=== PATIENT | female | born 1950 | race Caucasian/White ===

== ENCOUNTER 2020-01-17 06:07 | Outpatient (CLI) | payer MEDICARE, OTHER ==
[2020-01-17 16:36] LABS: SARS-CoV-2 MS2 Positive; SARS-CoV-2 N Gene Negative; SARS-CoV-2 S Gene Negative; SARS-CoV-2 by NAA Not Detected (NotDetected); SARS-CoV-2 orf1ab Negative
== END 2020-01-17 06:08 | disposition home or self-care (01) ==
LOC: LABBT 06:07
PROVIDERS: ATTEND Ophthalmology Retina Specialist
DX: H35.371 Puckering of macula, right eye (principal); Z20.828 Contact with and (suspected) exposure to other viral communicable diseases
CPT/HCPCS: 87635; U0003

== ENCOUNTER 2020-01-20 06:14 | Day surgery (SDC) | payer MEDICARE ==
[2020-01-19 13:44] VITALS: BMI 21.6
[2020-01-20] MEDS ORDERED: Fluorouracil 100 MG, Enoxaparin Sodium 25 MG, EPINEPHrine 0.3 MG in Ophthalmic Irrigati... IRR SCH (06:30)
[2020-01-20] MEDS ORDERED: Phenylephrine 2.5% Ophth Soln 5 ML BOT ONE (06:32)
[2020-01-20] MEDS ORDERED: Cyclopentolate 1% Opth Drop 2 ML BOT ONE (06:32)
[2020-01-20] MEDS ORDERED: Fentanyl 100 MCG/2 ML VIAL ONE (06:34)
[2020-01-20] MEDS ORDERED: Midazolam HCl 5 mg/5 ml Vial ONE (06:35)
[2020-01-20] MEDS ORDERED: Midazolam HCl 2 mg/2 ml Vial ONE (06:35)
[2020-01-20] MEDS ORDERED: PROPOFOL 20 ML ONE (06:35)
[2020-01-20] MEDS ORDERED: Maxitrol 0.1% Opth Oint 3.5 GM TUBE ONE (11:37)
[2020-01-20] MEDS ORDERED: Indocyanine Green 25 MG/10 ML VIAL ONE (11:37)
[2020-01-20] MEDS ORDERED: Enoxaparin Sodium 30 MG/0.3 ML SYRINGE ONE (11:37)
[2020-01-20] MEDS ORDERED: Bupivacaine PF 0.75% SDV 10 ML ONE (11:37)
[2020-01-20] MEDS ORDERED: Lidocaine 4% PF 5 ML AMP ONE (11:37)
[2020-01-20] MEDS ORDERED: Lidocaine 1% PF 5 ML VIAL ONE (11:37)
[2020-01-20] MEDS ORDERED: CEFAZOLIN 1 GM VIAL ONE (11:37)
[2020-01-20] MEDS ORDERED: Triamcinolone 40 MG/ML VIAL ONE (11:37)
[2020-01-20] MEDS ORDERED: PROPOFOL 200 MG/20 ML VIAL ONE (11:37)
--- NOTE | 2020-01-20 14:11 | OP ---
DATE OF PROCEDURE: 01/20/2020 PREOPERATIVE DIAGNOSIS: Epiretinal membrane, right eye. POSTOPERATIVE DIAGNOSIS: Epiretinal membrane, right eye. PROCEDURES PERFORMED: Pars plana vitrectomy, epiretinal membrane peel, right eye. ANESTHESIA: Local with monitored anesthesia care. PROCEDURE IN DETAIL: The patient identified in the preoperative holding area. Appropriate informed consent for the planned surgical procedure on the right eye had been obtained. The patient was transported to the operative suite. Appropriate cardiopulmonary monitoring was established. Local anesthesia was obtained using retrobulbar modified [place] Lint lid block using 50:50 mixture of 4% lidocaine and 0.75% bupivacaine. The patient was prepped and draped in the usual sterile manner for ophthalmic surgery on the right eye. Lid speculum was placed in the right eye. 25-gauge trocar was placed in conjunctiva and sclera superotemporally, inferotemporally, and supranasally. Infusion line was placed inferotemporally. Light pipe vitreous cutter was inserted into the eye. Core vitrectomy was performed. Indocyanine green dye was infused on the posterior pole x4. This identified the epiretinal membrane, it was very flat, and present over the entire posterior pole. It was elevated using membrane scraper in the extramacular areas and peeled across the entire macula. Indirect ophthalmoscopy was used to examine the retina 360 degrees. No holes, breaks, or tears were identified. Trocars were removed and the eye was noted to retain pressure well. Retrobulbar Kenalog and subconjunctival Ancef were placed and antibiotic ointment was placed. The eye was patched and shielded. The patient was taken to the postop recovery unit in good condition, having suffered no immediate perioperative complications. The patient was instructed to keep patch and shield on, avoid lifting or bending. Followup appointment with Dr. Camp. Job ID: [id number]
== END 2020-01-20 09:10 | disposition home or self-care (01) ==
LOC: SDC 06:14
PROVIDERS: ATTEND Ophthalmology Retina Specialist
PROC: 08T43ZZ Resection of Right Vitreous, Percutaneous Approach (ICD-10-PCS; principal; 2020-01-20)
PROC: 08NE3ZZ Release Right Retina, Percutaneous Approach (ICD-10-PCS; 2020-01-20)
DX: H35.371 Puckering of macula, right eye (principal); I10 Essential (primary) hypertension; M06.9 Rheumatoid arthritis, unspecified; Z86.73 Personal history of transient ischemic attack (TIA), and cerebral infarction without residual deficits; Z79.02 Long term (current) use of antithrombotics/antiplatelets; Z79.899 Other long term (current) drug therapy
CPT/HCPCS: J0171; J0690; J1650; J2001; J2250; J2704; J3010; J3301; J3490; J9190

== ENCOUNTER 2024-11-24 11:33 | Outpatient (CLI) | payer MEDICARE ==
[2024-11-24 13:28] LABS: #Basophils 0.07 10x3/uL (0.0-0.2); #Eosinophils 0.69 10x3/uL (0.0-0.7); #Monocytes 1.07 10x3/uL (0.11-0.59); #Neutrophils 5.12 10x3/uL (1.40-6.50); %Basophils 0.7 % (0.0-1.0); %Eosinophils 7.4 % (0.0-10.0); %Lymphocytes 25.7 % (21.0-51.0); %Monocytes 11.4 % (0.0-10.0); %Neutrophils 54.6 % (42.0-75.0); Hematocrit 38.1 % (36.0-47.0); Hemoglobin 11.7 g/dL (12.0-16.0); Mean Corpuscular Hemoglobin 27.5 pg (27.0-31.0); Mean Corpuscular Volume 89.6 fL (78.0-98.0); Platelet Count 360 10x3/uL (130-400); Red Blood Cell (RBC) Count 4.25 mill/uL (4.20-5.40); White Blood Cell (WBC) Count 9.38 10x3/uL (4.8-10.8)
[2024-11-24 13:36] LABS: Bacteria/HPF 3+ HPF (None Seen); Glucose, Urine (Dipstick) Normal (Negative); Leukocyte 250 Leu/uL (Negative); Protein, Urine (Dipstick) Negative (Neg-Trace); RBC/HPF 0-3 HPF (0-3); Specific Gravity, Urine 1.009 (1.002-1.036); WBC/HPF 21-50 HPF (0-3)
[2024-11-24 13:45] LABS: Anion Gap 13 mmol/L (10-20); BUN (Urea Nitrogen) 15 mg/dL (9.8-20.1); Calc. Creatinine Clearance 0 mL/min (70-130); Calcium 8.9 mg/dL (7.8-10.44); Carbon Dioxide 24 mmol/L (23-31); Chloride 105 mmol/L (98-107); Glucose 84 mg/dL (83-110); Potassium 3.8 mmol/L (3.5-5.1); Sodium 138 mmol/L (136-145)
[2024-11-24 13:47] LABS: INR-International Normal Ratio 1.0; Prothrombin Time 13.7 sec (12.0-14.7)
== END 2024-11-24 11:34 | disposition home or self-care (01) ==
LOC: LABBT 11:33
PROVIDERS: ATTEND Orthopaedic Surgery
DX: Z01.818 Encounter for other preprocedural examination (principal); M17.12 Unilateral primary osteoarthritis, left knee
CPT/HCPCS: 71046; 80048; 81001; 85025; 85610; 87081; 93005; 93010

== ENCOUNTER 2024-11-24 12:17 | Outpatient (CLI) | payer MEDICARE | END 2024-11-24 12:18 | disposition home or self-care (01) | LOC: CT 12:17 | PROVIDERS: ATTEND Orthopaedic Surgery | DX: Z01.818 Encounter for other preprocedural examination (principal); M17.12 Unilateral primary osteoarthritis, left knee | CPT/HCPCS: 71046; 80048; 81001; 85025; 85610; 87081; 93005; 93010 ==

== ENCOUNTER 2024-12-01 08:00 | Observation (INO) | payer MEDICARE ==
[2024-12-01] MEDS ORDERED: Ropivacaine 0.5% HCl/PF (150 MG/30 ML VIAL) ONE (08:31)
[2024-12-01] MEDS ORDERED: CEFAZOLIN 2 GM VIAL ONE (08:42)
[2024-12-01] MEDS ORDERED: Tranexamic Acid 1,000 MG/10 ML VIAL ONE ×2 (08:42→12:02)
[2024-12-01] MEDS ORDERED: Vancomycin 1 GM/200 ML (PREMIX FOIL) BAG ONE (09:17)
[2024-12-01] MEDS ORDERED: HYDROcodone/Acetaminophen 10/325 mg Tablet PO PRN (09:30)
[2024-12-01] MEDS ORDERED: Ondansetron PF 4 MG/2 ML Vial IVP PRN ×2 (09:30→11:28)
[2024-12-01] MEDS ORDERED: Ropivacaine 0.2% 550 ML 550 ML NERVE BLCK SCH (09:30)
[2024-12-01] MEDS ORDERED: PROPOFOL 20 ML ONE (09:40)
[2024-12-01] MEDS ORDERED: Ondansetron PF 4 MG/2 ML Vial ONE (09:41)
[2024-12-01] MEDS ORDERED: Lidocaine 1% PF 5 ML VIAL ONE (09:41)
[2024-12-01] MEDS ORDERED: Glycopyrrolate 0.2 MG/ML 5 ML SYRINGE ONE (11:04)
[2024-12-01] MEDS ORDERED: Acetaminophen 325 MG TAB PO PRN (11:28)
[2024-12-01] MEDS ORDERED: diphenhydrAMINE 25 MG CAP PO PRN (11:28)
[2024-12-01] MEDS ORDERED: HYDROmorphone 0.5 MG/0.5 ML SYRINGE ONE (12:23)
[2024-12-01] MEDS ORDERED: fentaNYL PF 100 MCG/2 ML SYRINGE ONE (13:05)
[2024-12-01 15:35] VITALS: BMI 24.0
[2024-12-01] MEDS: Ketorolac Tromethamine 30 MG (1 mL) VIAL IVP SCH (16:53)
[2024-12-01] MEDS: clonazePAM 1 MG TAB PO SCH (20:37)
[2024-12-01] MEDS: Ferrous Gluconate 324 MG TAB PO SCH (20:38)
[2024-12-01] MEDS: Aspirin 81 mg Enteric Coated Tablet PO SCH (20:38)
[2024-12-01] MEDS: Senokot S 8.6-50 MG TAB PO SCH (20:38)
[2024-12-01] MEDS: Vancomycin 1 GM in Premix 1 BAG IVPB SCH (21:03)
[2024-12-02 05:34] LABS: Hematocrit 32.3 % (36.0-47.0); Hemoglobin 10.2 g/dL (12.0-16.0); Mean Corpuscular Hemoglobin 27.9 pg (27.0-31.0); Mean Corpuscular Volume 88.3 fL (78.0-98.0); Platelet Count 286 10x3/uL (130-400); Red Blood Cell (RBC) Count 3.66 mill/uL (4.20-5.40); White Blood Cell (WBC) Count 10.34 10x3/uL (4.8-10.8)
[2024-12-02] MEDS: Folic Acid 1 MG TAB PO SCH (08:46)
[2024-12-02] MEDS: Multivitamin W/ Minerals 1 TAB PO SCH (08:46)
[2024-12-02] MEDS: Famotidine 20 MG TAB PO SCH (08:46)
[2024-12-02] MEDS: HYDROcodone/Acetaminophen 10/325 mg Tablet PO PRN (08:47)
[2024-12-02 10:28] VITALS: BP 133/74; TEMP 98
== END 2024-12-02 12:10 | disposition home or self-care (01) ==
LOC: SDC 08:00 → SURG A 15:05
PROVIDERS: ADMIT Orthopaedic Surgery; ATTEND Orthopaedic Surgery
PROC: 3E0T3BZ Introduction of Anesthetic Agent into Peripheral Nerves and Plexi, Percutaneous Approach (ICD-10-PCS; principal; 2024-12-01)
PROC: 0SRD0JZ Replacement of Left Knee Joint with Synthetic Substitute, Open Approach (ICD-10-PCS; 2024-12-01)
DX: M17.12 Unilateral primary osteoarthritis, left knee (principal); Z88.8 Allergy status to other drugs, medicaments and biological substances
CPT/HCPCS: 0055T; 27447; 64448; 36416; 85027; A4306; C1713; C1776; C1889; J0166; J0665; J1171; J1885; J2250; J2405; J2704; J2795; J3010; J3372